=== PATIENT | male | born 1955 | race Caucasian/White ===

== ENCOUNTER 2019-11-11 11:06 | Outpatient (REF) | payer MEDICARE, MEDICAID, SELFPAY ==
[2019-11-11 11:41] LABS: Abs Immature Grans 0.04 k/cumm (0.0-0.09); Absolute Basophil Count 0.05 k/cumm (0.0-0.2); Absolute Eosinophil Count 0.22 k/cumm (0.0-0.7); Absolute Lymphocyte Count 2.49 k/cumm (1.2-3.4); Absolute Monocyte Count 0.88 k/cumm (0.11-0.7); Absolute Neutrophil Count 3.94 k/cumm (1.2-6.7); Basophils % 0.7; Eosinophils % 2.9; HCT 46.8 % (40.0-50.0); HGB 16.1 g/dL (13.5-17.5); Immature Grans % 0.5 %; Lymphocytes % 32.7; Mean Corp. HGB Concentration 34.4 g/dL (32.0-36.0); Mean Corpuscular Hemoglobin 30.6 pg (27.0-33.0); Mean Platelet Volume 9.9 fL (8.0-11.0); Monocytes % 11.5; Neutrophils % 51.7; Platelet Count 346 x1000/uL (130-400); RBC 5.26 m/cumm (4.50-6.00); RBC Distribution Width 13.8 % (11.8-14.1); White Blood Cell Count 7.62 k/cumm (4.4-10.8)
[2019-11-11 12:19] LABS: Iron 74 ug/dL (65-175); Total Iron Binding Capacity 361 ug/dL (250-450); Transferrin Sat 20 % (20-55)
[2019-11-11 12:43] LABS: Hemoglobin A1C 5.7 % (3.8-5.6)
[2019-11-11 12:44] LABS: ALT 30 U/L (16-63); AST 27 U/L (15-37); Albumin 3.6 g/dL (3.4-5.0); Alkaline Phosphatase 105 U/L (46-116); Anion Gap 8.7 mmol/L (3-11); BUN 9 mg/dL (7-18); Bilirubin, Total 0.5 mg/dL (0.2-1.0); CO2 28.3 mmol/L (21.0-32.0); CREATININE 0.76 mg/dL (0.70-1.30); Calcium 8.9 mg/dL (8.5-10.1); Chloride 103 mmol/L (98-107); Glucose 86 mg/dL (74-106); Potassium 4.2 mmol/L (3.5-5.1); Sodium 140 mmol/L (136-145); TSH (W/Ref FT4) 1.26 uIU/mL (0.36-3.74); Total Protein 7.4 g/dL (6.4-8.2); Vitamin B12 1249 pg/mL (193-986)
[2019-11-11 12:47] LABS: Folate > 20.0 ng/mL (8.6-20.0)
== END 2019-11-11 11:26 ==
LOC: LBN 11:06
PROVIDERS: PCP Family Medicine; Visit Provider Family Medicine
DX: R53.83 Other fatigue (principal); I25.10 Atherosclerotic heart disease of native coronary artery without angina pectoris; R25.2 Cramp and spasm; I10 Essential (primary) hypertension; R79.89 Other specified abnormal findings of blood chemistry; R73.09 Other abnormal glucose
CPT/HCPCS: 80053; 82607; 82746; 83036; 83540; 83550; 83735; 84443; 85025

== ENCOUNTER 2022-01-12 14:34 | Emergency (ER) | payer MEDICARE, MEDICAID, SELFPAY ==
[2022-01-12] VITALS (25 sets, daily range): BP systolic 105–133; BP diastolic 62–84; PULSE 85–109; RESP 10–21; TEMP 36.5; O2SAT 91–98
--- NOTE | 2022-01-12 14:30 | RT.EKG_ITS ---
APPROVED REPORT Exam: Resting ECG Reason for Exam: CHEST PAIN Patient Location: E HR:99 bpm ECG Measurements Heart Rate 99 AXIS UT 120 P 17 QRSd 79 QRS 45 QT 335 T -52 QTc 431 Conclusion Sinus rhythm...normal P axis, V-rate 60- 99
--- NOTE | 2022-01-12 14:45 | DI.RAD_ITS ---
Exam(s) XR PORTABLE CHEST AP EXAM: XR PORTABLE CHEST AP CLINICAL HISTORY: cough/pain. TECHNIQUE: 2D digital imaging was performed. COMPARISON: CR CHEST 2 VIEWS PA,LAT from 11/30/2016 FINDINGS: Single AP portable view. Heart size is upper normal. The mediastinum is not widened. Lungs are clear. No infiltrates nor obvious pleural effusions. IMPRESSION: No acute pulmonary findings on this single AP portable view of the chest. DATA REPOSITORY: RADIATION DOSE DELIVERED: All CT scans at this facility use at least one of these dose optimization techniques: automated exposure control; mA and/or kV adjustment per patient size (includes targeted e xams where dose is matched to clinical indication); or iterative reconstruction.
[2022-01-12] MEDS: Aspirin 81 MG CHEW 324 MG CH (15:06)
--- NOTE | 2022-01-12 15:11 | ED.GENADUL_ITS ---
Discharge Plan Disposition Patient Disposition: HOME Condition: Stable Discharge Details Clinical Impression: Chest pain, COPD exacerbation Primary Care Provider: Marylu Lyman ED Provider: Nancy Berger Home Meds and New Rx's Prescriptions: Continued acetaminophen 325 mg tablet See Rx Instructions PO Q 6HR PRN (Reason: fever or pain) Qty: 100 4RF Rx Instructions: 1-2 tabs PO Q 6HR PRN; multivitamin [Multiple Vitamins] 1 TAB tablet 1 tab PO DAILY Qty: 30 0RF Discharge Instructions Instructions: Chest Pain (ED), COPD (Chronic Obstructive Pulmonary Disease) (ED) Additional Instructions: At this time there is no evidence for pneumonia, no blood clot, No evidence for heart attack, COVID is negative. I do suspect a COPD exacerbation or a viral URI. . Please follow-up with your primary care provider in 3 to 5 days return to the ER for any worsening chest pain or shortness of breath. Referrals: Marylu Lyman MD, [place] [Primary Care Provider] - 5 days Medical Decision Making <DILIP Sandy - Last Filed: 01/12/22 15:50> This is a 66-year-old gentleman, past medical history that includes Warnicke encephalopathy, previous alcohol dependence, COPD, presents to the ER reporting 3-week history of cough, with hemoptysis at times, associate with occasional chest aching when coughing and shortness of breath. Clinically he appears well, nontoxic. Extremely low suspicion for ACS given his overall presentation. Will give a single dose aspirin, initiate cardiac work-up, and obtain a D-dimer. Will await D-dimer results to decide whether to proceed with CTA and or VQ scan if at all possible given the IV contrast shortage Medical Records Medical records reviewed: Yes I reviewed the patient's medical records. Lab Data Lab results reviewed: Yes I reviewed the patient's lab results. Labs: Laboratory Tests Range/Units 01/12/22 01/12/22 01/12/22 14:58 14:58 14:58 WBC (4.4-10.8) 10^3/uL 8.40 RBC (4.36-5.78) 10^6/uL 5.17 Hgb (13.5-17.5) g/dL 15.5 Hct (40.0-50.0) % 46.7 MCV (80-95) fL 90 MCH (27.0-33.0) pg 30.0 MCHC (32.0-36.0) % 33.2 RDW (11.8-14.1) % 13.1 Plt Count (130-400) 10^3/uL 340 MPV (8.0-11.0) fL 9.4 Immature Gran % 0.5 Neutrophils % 73.8 Lymphocytes % 14.0 Monocytes % 10.8 Eosinophils % 0.5 Basophils % 0.4 Nucleated RBC % (0.0-0.3) % 0.0 Absolute Neutrophils (1.2-6.7) 10^3/uL 6.20 Absolute Lymphocytes (1.2-3.4) 10^3/uL 1.18 L Absolute Monocytes (0.1-0.8) 10^3/uL 0.91 H Absolute Eosinophils (0.0-0.7) 10^3/uL 0.04 Absolute Basophils (0.0-0.2) 10^3/uL 0.03 PT (9.3-11.0) sec 10.0 INR (0.9-1.1) 1.0 APTT (21.0-27.5) sec 25.4 Sodium (136-145) mmol/L 136 Potassium (3.5-5.1) mmol/L 3.3 L Chloride (98-107) mmol/L 100 Carbon Dioxide (21.0-32.0) mmol/L 23.4 Anion Gap (3-11) mmol/L 12.6 H BUN (7-18) mg/dL 23 H Creatinine (0.70-1.30) mg/dL 1.0 Estimated GFR/1.73 m2 (mL/min/1.73m2) >= 60.00 Glucose (74-106) mg/dL 115 H Calcium (8.5-10.1) mg/dL 8.9 Magnesium (1.8-2.4) mg/dL 2.0 Total Bilirubin (0.2-1.0) mg/dL 0.4 AST (15-37) U/L 21 ALT (16-63) U/L 22 Alkaline Phosphatase (46-116) U/L 98 Troponin I (<or=60) ng/L < 50 NT-Pro-B Natriuret Pep (<300) pg/mL 157 Total Protein (6.4-8.2) g/dL 7.6 Albumin (3.4-5.0) g/dL 3.3 L COVID-19 Source Range/Units 01/12/22 15:08 WBC (4.4-10.8) 10^3/uL RBC (4.36-5.78) 10^6/uL Hgb (13.5-17.5) g/dL Hct (40.0-50.0) % MCV (80-95) fL MCH (27.0-33.0) pg MCHC (32.0-36.0) % RDW (11.8-14.1) % Plt Count (130-400) 10^3/uL MPV (8.0-11.0) fL Immature Gran % Neutrophils % Lymphocytes % Monocytes % Eosinophils % Basophils % Nucleated RBC % (0.0-0.3) % Absolute Neutrophils (1.2-6.7) 10^3/uL Absolute Lymphocytes (1.2-3.4) 10^3/uL Absolute Monocytes (0.1-0.8) 10^3/uL Absolute Eosinophils (0.0-0.7) 10^3/uL Absolute Basophils (0.0-0.2) 10^3/uL PT (9.3-11.0) sec INR (0.9-1.1) APTT (21.0-27.5) sec Sodium (136-145) mmol/L Potassium (3.5-5.1) mmol/L Chloride (98-107) mmol/L Carbon Dioxide (21.0-32.0) mmol/L Anion Gap (3-11) mmol/L BUN (7-18) mg/dL Creatinine (0.70-1.30) mg/dL Estimated GFR/1.73 m2 (mL/min/1.73m2) Glucose (74-106) mg/dL Calcium (8.5-10.1) mg/dL Magnesium (1.8-2.4) mg/dL Total Bilirubin (0.2-1.0) mg/dL AST (15-37) U/L ALT (16-63) U/L Alkaline Phosphatase (46-116) U/L Troponin I (<or=60) ng/L NT-Pro-B Natriuret Pep (<300) pg/mL Total Protein (6.4-8.2) g/dL Albumin (3.4-5.0) g/dL COVID-19 Source Nasal/Nares ECG Data Attestation: I personally reviewed and interpreted this ECG (s) as follows: Interpretation: Please see official report by Dr. Oconnor, sinus rhythm, ventricular rate of 99, no STEMI <Nancy Berger - Last Filed: 01/12/22 19:45> This is a 66-year-old gentleman, past medical history that includes Warnicke encephalopathy, previous alcohol dependence, COPD, presents to the ER reporting 3-week history of cough, with hemoptysis at times, associate with occasional chest aching when coughing and shortness of breath. Clinically he appears well, nontoxic. Extremely low suspicion for ACS given his overall presentation. Will give a single dose aspirin, initiate cardiac work-up, and obtain a D-dimer. Will await D-dimer results to decide whether to proceed with CTA and or VQ scan if at all possible given the IV contrast shortage 1603: [place]: Care assumed from provider (DILIP Nayak Please see their initial HPI, PE, and documentation. Discussed patient details and case and pending workup and disposition. Patient is hemodynamically stable, and alert and oriented. At the time of signout we are awaiting D-dimer which has resulted with a level of 1660 due to hemoptysis and chest pain with shortness of breath will contact transportation associate for possible CTA with contrast rule out PE. Initial troponin less than 50, COVID is pending at this time. GFR greater than 60. Spoke with Dr. Iqbal who is on for radiologist, will go ahead with CTA R/O PE. CT negative for PE, Discussed results with patient and family. They verbalized understanding. Patient reports that he feels much improved. Serial troponin within normal limits. Plan to discharge patient home in the care of of his daughter. Patient remained hemodynamically stable, alert and at baseline for the remainder of his stay. This text was generated using [employer] system, please disregard any oddities of phrase or misspellings. Medical Records Medical records reviewed: Yes I reviewed the patient's medical records. Imaging Data Radiologic Study: Imaging: CT Scan Radiologist's impression: FINDINGS: CHEST: PULMONARY ARTERIES: There are no intraluminal filling defects to suggest acute pulmonary emboli. LUNGS: There are mild increased interstitial peripheral markings as well as subpleural mild increased markings over the lower lobes bilaterally. No evidence of pulmonary infarction. Small area of infiltrate in the posterior aspect of the right lower lobe. No prominent infiltrates nor pleural effusions. No ominous pulmonary nodules. No significant focal findings in the trachea and mainstem bronchi.. There are no pleural effusions. MEDIASTINUM: There is no hilar nor mediastinal adenopathy. Visualized thyroid unremarkable. CARDIAC: Heart size is upper normal. There is no pericardial effusion.Caliber of the thoracic aorta is within normal limits. No evidence of aortic dissection. There is no significant shift of the interventricular septum. PARTIALLY VISUALIZED UPPERMOST ABDOMEN: No obvious findings OSSEOUS: No significant osseous lesions.. IMPRESSION: 1. No evidence of acute pulmonary emboli. No evidence of pulmonary infarction.No pleural effusions. 2. Mild increased subpleural markings but without true air bronchograms. No pleural effusions. No intrathoracic adenopathy HPI <DILIP Sandy - Last Filed: 01/12/22 15:50> General Mode of arrival: EMS . Date/Time Provider Initiated Documentation: 01/12/22 14:53 . Limitations to Documentation: no limitations . Information obtained by: patient and EMS . History of Present Illness 66 year old M presents to the emergency department with the chief complaint of cough/sob/cp, described as mild, with intensity rated at 3. Quality is described as aching, and is localized to the chest. Patient reports no radiation. Patient started experiencing this week(s) (3) No relieving factors improve symptom(s), No exacerbating factors reported . Patient notes cough (Hemoptysis). Patient did receive the following treatments prior to arrival, none Related Data Home Medications Medication Instructions Recorded Confirmed multivitamin (Multiple Vitamins 1 tab PO DAILY #30 tabs 12/05/16 07/05/21 tablet) acetaminophen 325 mg tablet See Rx Instructions PO Q 6HR PRN 11/02/21 01/12/22 fever or pain #100 tab-caps Previous Rx's Medication Instructions Recorded multivitamin (Multiple Vitamins 1 tab PO DAILY #30 tabs 12/05/16 tablet) acetaminophen 325 mg tablet See Rx Instructions PO Q 6HR PRN 11/02/21 fever or pain #100 tab-caps Allergies Allergy/AdvReac Type Severity Reaction Status Date / Time No Known Allergies Allergy Unverified 01/12/22 14:44 General Stated Complaint: Chest Pain NAVNEET: 3 Review of Systems <DILIP Sandy - Last Filed: 01/12/22 15:50> Constitutional Constitutional: Denies fever(s), Denies headache(s) and Denies weakness ENT Ears, Nose, Mouth, and Throat: Denies headache(s) and Denies neck pain Cardiovascular Cardiovascular: Reports chest pain (Primarily with cough) and Reports dyspnea Respiratory Respiratory: Reports cough and Reports dyspnea Gastrointestinal Gastrointestinal: Denies abdominal pain, Denies nausea and Denies vomiting Musculoskeletal Musculoskeletal: Denies back pain and Denies neck pain Integumentary/Breasts Skin/Breast: Denies rash Neurologic Neurologic: Denies headache(s) and Denies weakness Hematologic/Lymphatic Hematologic/Lymphatic: Denies easy bleeding and Denies easy bruising PFSH <DILIP Sandy - Last Filed: 01/12/22 15:50> All Active Problems (Updated 01/12/22 @ 18:52 by Nancy Berger) Chest pain (Acute) COPD exacerbation (Acute) Wernicke encephalopathy (Acute) Alcohol dependence with withdrawal delirium (Acute) Folate deficiency (Acute) COPD (chronic obstructive pulmonary disease) (Acute) Weight loss (Acute) Hypokalemia (Acute) Hypomagnesemia (Acute) SVT (supraventricular tachycardia) (Acute) Second degree atrioventricular block (Acute) Social History Smoking/Tobacco Use Status: Current every day Smoking risk assessment performed?: Yes Alcohol Intake: former Drug use: Never Substance use type: does not use Exam <DILIP Sandy - Last Filed: 01/12/22 15:50> Const General: cooperative, healthy appearing, comfortable and no acute distress Orientation: alert and awake [facility] Head: normal to inspection, normocephalic and atraumatic Eyes General: appearance normal, both eyes and all related structures Conjunctivae: conjunctivae normal Neck Neck: normal visual inspection, full ROM, trachea midline, supple and nontender Resp Effort & Inspection: normal respiratory effort, able to speak in complete sentences and cough Quality of cough: dry Auscultation: clear to auscultation bilaterally and diminished lung sounds bilaterally in the lower lung shetty Cardio Rate: tachycardic (108) Rhythm: regular rhythm GI Palpation: soft and nontender Back/Spine/Pelvis Back: No back tenderness Skin General skin exam: no rashes or lesions noted Neuro General: patient alert, patient awake, moves all extremities and no focal motor deficits Cognition: normal cognition Speech: speech normal Sensory Exam: no sensory deficits noted Extrem General: normal to inspection, full ROM, capillary refill normal, no pedal edema and no calf tenderness Psych Appearance: grossly normal Mental Status: mental status grossly normal Course <DILIP Sandy - Last Filed: 01/12/22 15:50> Vital Signs Vital signs: Vital Signs Temperature 36.5 C 01/12/22 14:37 Pulse 109 H 01/12/22 14:37 Respiratory Rate 18 01/12/22 14:37 Blood Pressure 110/62 01/12/22 14:37 Pulse Oximetry 98 01/12/22 14:37 Temperature 36.5 C 01/12/22 14:37 Temperature Source Temporal Artery Scan 01/12/22 14:37 Pulse 109 H 01/12/22 14:37 Respiratory Rate 18 01/12/22 14:46 Respiratory Effort Non-Labored 01/12/22 14:46 Respiratory Depth Normal 01/12/22 14:46 Respiratory Pattern Normal 01/12/22 14:46 Blood Pressure 110/62 01/12/22 14:37 Blood Pressure Position Sitting 01/12/22 14:37 Pulse Oximetry 98 01/12/22 14:37 Oxygen Delivery Method Room Air 01/12/22 14:37 Oxygen Flow Rate 0 01/12/22 14:37 Sign Out <DILIP Sandy - Last Filed: 01/12/22 15:50> Sign Out Data: Sign Out Comment: 66-year-old gentleman past sickle history of COPD, current smoker, presents for cough, hemoptysis, shortness of breath and chest pain. Initiated a cardiac work-up and awaiting D-dimer Last updated by Chalino Littlejohn PA at 01/12/22 15:50
[2022-01-12 15:13] LABS: Source Nasal/Nares
[2022-01-12 15:18] LABS: Abs Immature Grans 0.04 10^3/uL (0.0-0.06); Absolute Basophil Count 0.03 10^3/uL (0.0-0.2); Absolute Eosinophil Count 0.04 10^3/uL (0.0-0.7); Absolute Lymphocyte Count 1.18 10^3/uL (1.2-3.4); Absolute Monocyte Count 0.91 10^3/uL (0.1-0.8); Basophils % 0.4; Eosinophils % 0.5; HCT 46.7 % (40.0-50.0); HGB 15.5 g/dL (13.5-17.5); Immature Grans % 0.5; MCHC 33.2 % (32.0-36.0); MCV 90 fL (80-95); MPV 9.4 fL (8.0-11.0); Monocytes % 10.8; Neutrophils % 73.8; Platelet Count 340 10^3/uL (130-400); RBC 5.17 10^6/uL (4.36-5.78); RDW 13.1 % (11.8-14.1); RDW-SD 43.4 fL
[2022-01-12 15:38] LABS: ALT 22 U/L (16-63); AST 21 U/L (15-37); Albumin 3.3 g/dL (3.4-5.0); Alkaline Phosphatase 98 U/L (46-116); Anion Gap 12.6 mmol/L (3-11); BUN 23 mg/dL (7-18); Bilirubin, Total 0.4 mg/dL (0.2-1.0); CO2 23.4 mmol/L (21.0-32.0); Calcium 8.9 mg/dL (8.5-10.1); Chloride 100 mmol/L (98-107); Glucose 115 mg/dL (74-106); NT-proBNP 157 pg/mL (<300); Potassium 3.3 mmol/L (3.5-5.1); Sodium 136 mmol/L (136-145); Total Protein 7.6 g/dL (6.4-8.2); Troponin I < 50 ng/L (<or=60)
[2022-01-12 15:39] LABS: PTT Activated 25.4 sec (21.0-27.5)
[2022-01-12 15:49] LABS: D-Dimer 1660 ng/mlFEU (<500)
--- NOTE | 2022-01-12 16:00 | DI.CT_ITS ---
Exam(s) CT CHEST PE CTA EXAM: CT CHEST PE CTA CLINICAL HISTORY: Elevated Dimer, CP, SOB, Hemoptysis. TECHNIQUE: Imaging Protocol: CT angiography of the chest was performed using pulmonary embolus lizz col. Multi planar reconstructions were performed. CONTRAST MATERIAL: Intravenous: Omnipaque 350 Contrast volume: 100 cc COMPARISON: CT CHEST ABD PELVIS WITH CONTRAST from 08/01/2015 CR XR PORTABLE CHEST AP from 01/12/2022 FINDINGS: CHEST: PULMONARY ARTERIES: There are no intraluminal filling defects to suggest acute pulmonary emboli. LUNGS: There are mild increased interstitial peripheral markings as well as subpleural mild increased markings over the lower lobes bilaterally. No evidence of pulmonary infarction. Small area of infi ltrate in the posterior aspect of the right lower lobe. No prominent infiltrates nor pleural effusio ns. No ominous pulmonary nodules. No significant focal findings in the trachea and mainstem bronchi .. There are no pleural effusions. MEDIASTINUM: There is no hilar nor mediastinal adenopathy. Visualized thyroid unremarkable. CARDIAC: Heart size is upper normal. There is no pericardial effusion.Caliber of the thoracic aorta is within normal limits. No evidence of aortic dissection. There is no significant shift of the inte rventricular septum. PARTIALLY VISUALIZED UPPERMOST ABDOMEN: No obvious findings OSSEOUS: No significant osseous lesions.. IMPRESSION: 1. No evidence of acute pulmonary emboli. No evidence of pulmonary infarction.No pleural effusions. 2. Mild increased subpleural markings but without true air bronchograms. No pleural effusions. No i ntrathoracic adenopathy. Report called by myself to the ER provider. RADIATION DOSE DELIVERED: 298.7mGy.cm Total DLP DATA REPOSITORY: All CT scans at this facility are submitted to the National Radiology Data Registry (NRDR) Dose Index Registry (DIR) with the [employer] ([employer]). RADIATION OPTIMIZATION: All CT scans at this facility use at least one of these dose optimization te chniques: automated exposure control; mA and/or kV adjustment per patient size (includes targeted exa ms where dose is matched to clinical indication); or iterative reconstruction.
[2022-01-12 16:10] LABS: COVID-19 PCR Negative (Negative)
[2022-01-12 18:33] LABS: Troponin I < 50 ng/L (<or=60)
== END 2022-01-12 19:06 | disposition home or self-care (01) ==
PROVIDERS: Physician Assistant; Emergency Provider Registered Nurse Emergency; PCP Family Medicine
DX: J44.1 Chronic obstructive pulmonary disease with (acute) exacerbation (principal); R07.9 Chest pain, unspecified; R06.02 Shortness of breath; R05.9 Cough, unspecified; Z20.822 Contact with and (suspected) exposure to COVID-19
CPT/HCPCS: 36415; 71275; 80053; 87635; 93005; 99284; 99285; 71045; 83735; 83880; 84484; 85025; 85379; 85610; 85730; 93010

== ENCOUNTER 2022-01-12 18:36 | Outpatient (REF) | payer MEDICARE, MEDICAID, SELFPAY ==
[2022-01-12 14:24] LABS: Abs Immature Grans 0.02 10^3/uL (0.0-0.06); Absolute Basophil Count 0.03 10^3/uL (0.0-0.2); Absolute Eosinophil Count 0.05 10^3/uL (0.0-0.7); Absolute Lymphocyte Count 1.56 10^3/uL (1.2-3.4); Absolute Monocyte Count 0.84 10^3/uL (0.1-0.8); Absolute Neutrophil Count 6.17 10^3/uL (1.2-6.7); Basophils % 0.3; Eosinophils % 0.6; HCT 48.5 % (40.0-50.0); HGB 16.3 g/dL (13.5-17.5); Immature Grans % 0.2; MCH 30.4 pg (27.0-33.0); MCHC 33.6 % (32.0-36.0); MCV 90 fL (80-95); MPV 9.7 fL (8.0-11.0); Monocytes % 9.7; Neutrophils % 71.2; Platelet Count 340 10^3/uL (130-400); RBC 5.37 10^6/uL (4.36-5.78); RDW 13.1 % (11.8-14.1); RDW-SD 43.3 fL; WBC 8.67 10^3/uL (4.4-10.8)
[2022-01-12 14:27] LABS: ESR 41 mm/hr (0-20)
[2022-01-12 14:41] LABS: ALT 21 U/L (16-63); AST 18 U/L (15-37); Albumin 3.6 g/dL (3.4-5.0); Alkaline Phosphatase 109 U/L (46-116); Anion Gap 11.6 mmol/L (3-11); BUN 23 mg/dL (7-18); Bilirubin, Total 0.5 mg/dL (0.2-1.0); CO2 27.4 mmol/L (21.0-32.0); Calcium 9.4 mg/dL (8.5-10.1); Chloride 101 mmol/L (98-107); Glucose 103 mg/dL (74-106); Potassium 3.9 mmol/L (3.5-5.1); Sodium 140 mmol/L (136-145); Total Protein 7.4 g/dL (6.4-8.2)
== END 2022-01-12 18:37 | disposition home or self-care (01) ==
LOC: LBN 18:36
PROVIDERS: PCP Family Medicine; Visit Provider Family Medicine
DX: R53.83 Other fatigue (principal); R68.89 Other general symptoms and signs
CPT/HCPCS: 80053; 85652; 85025

== ENCOUNTER 2022-08-31 00:29 | Outpatient (CLI) | payer MEDICARE, MEDICAID, SELFPAY ==
--- NOTE | 2022-08-31 08:00 | DI.RAD_ITS ---
Exam(s) XR SHOULDER RT COMPLETE 2+V EXAM: XR SHOULDER RT COMPLETE 2+V CLINICAL HISTORY: r shoulder pain,M25.511. TECHNIQUE: 2D digital imaging was performed. Five views. COMPARISON: No exams were available for comparison FINDINGS: BONES: No acute fracture is present. No bony destructive lesion is seen. JOINTS: No dislocation present. Mild degenerative changes at the glenohumeral joint. SOFT TISSUE: Normal. IMPRESSION: Mild degenerative changes of the glenohumeral joint. DATA REPOSITORY: RADIATION DOSE DELIVERED:
== END 2022-08-31 00:49 ==
LOC: DI 00:29
PROVIDERS: PCP Family Medicine; Visit Provider Family Medicine
DX: M25.511 Pain in right shoulder (principal); M19.011 Primary osteoarthritis, right shoulder
CPT/HCPCS: 73030

== ENCOUNTER 2023-05-29 22:39 | Emergency (ER) | payer MEDICARE, MEDICAID, SELFPAY ==
[2023-05-29] VITALS (18 sets, daily range): BP systolic 93–113; BP diastolic 58–72; PULSE 75–94; RESP 14–22; TEMP 36.5; O2SAT 97–99
--- NOTE | 2023-05-29 22:30 | RT.EKG_ITS ---
APPROVED REPORT Exam: Resting ECG Reason for Exam: short of breath Patient Location: E HR:80 bpm ECG Measurements Heart Rate 80 AXIS MT 99 P 79 QRSd 89 QRS -12 QT 393 T -34 QTc 454 Conclusion Sinus rhythm...normal P axis, V-rate 60- 99 Inferior infarct, age indeterminate...Q>35mS, T neg, II III aVF Narrow complex normal sinus rhythm at a rate of 80. Left axis deviation no signs of LVH based on vol tage criteria and aVL. Poor R wave progression. Short MT interval shortened compared to prior. No obvious delta wave. No acute injury pattern.
--- NOTE | 2023-05-29 22:45 | DI.RAD_ITS ---
Exam(s) XR PORTABLE CHEST AP EXAM: XR PORTABLE CHEST AP CLINICAL HISTORY: Shortness of breath cough. TECHNIQUE: 2D digital imaging was performed. COMPARISON: CR XR PORTABLE CHEST AP from 01/12/2022 FINDINGS: Single AP portable view. Heart size is upper normal. The mediastinum is not widened. Chronic increased lung markings. However no confluent infiltrates nor pleural effusions. No pulmona ry edema. IMPRESSION: Chronic lung disease but no acute infiltrates. No pleural effusions. DATA REPOSITORY: RADIATION DOSE DELIVERED:
--- NOTE | 2023-05-29 22:52 | W.ED.GENAD ---
Discharge Plan Discharge Details Chief Complaint: GenMedical Primary Care Provider: Marylu Lyman ED Provider: Bruce Wheeler Home Meds and New Rx's Prescriptions: No Action acetaminophen 325 mg tablet See Rx Instructions PO Q 6HR PRN (Reason: fever or pain) Qty: 100 4RF Rx Instructions: 1-2 tabs PO Q 6HR PRN; albuterol sulfate 90 mcg/actuation HFA aerosol inhaler 2 puff inhalation Q4H PRN lidocaine [Salonpas (lidocaine)] 4 % adhesive patch,medicated 1 patch topical DAILY PRN Rx Instructions: apply to right shoulder daily as needed guaifenesin [Tussin] 100 mg/5 mL liquid 200 mg PO Q4H PRN (Reason: cough) Qty: 473 2RF multivitamin [Multiple Vitamins] 1 TAB tablet 1 tab PO DAILY Qty: 30 0RF HPI General Date/Time Provider Initiated Documentation: 05/29/23 22:49. HPI Narrative: HPI This is a 67-year-old male with a history of COPD and Warnicke's's coming from the [facility] and not feeling well. Patient reportedly had some increased shortness of breath today. He is a daily tobacco user. He says that he has had mild increased cough over the past several days. He notes that his sputum has become slightly more productive. Paramedics noted that his CODE STATUS is DNI DNR. Normal fingerstick blood glucose. His outpatient medicines are acetaminophen albuterol Lidoderm patch and multivitamins in addition to guaifenesin. He denies routine ethanol and reports that he has not had a drink of alcohol in greater than 1 year. He did not take any falls. He denies nausea vomiting abdominal pain fevers chills and headache. Exam General: Chronically ill-appearing in no acute distress speaking in complete sentences. Wearing glasses that are taped on the right side Head: Normocephalic, atraumatic. Eye: Extraocular eye movements intact. No conjunctival injection. No scleral icterus. Ear, nose, mouth, throat: Grossly normal inspection. Normal voice, handling secretions normally. Uvula midline. No significant posterior oropharynx erythema. Good range of motion in the neck. Neck: Trachea midline. Cardiovascular: Well-perfused distal extremities. Regular rate and rhythm. Respiratory: Nonlabored respiration. no respiratory distress. No abnormal lung sounds. Very mildly prolonged no wheezes. No end expiratory and not volume overloaded so doubt CHF. Wheeze. Gastrointestinal: Nondistended abdomen. Soft nontender Musculoskeletal: No no lower extremity pitting edema. Moving all 4 extremities spontaneously. Skin: Normal for age and race, grossly normal temperature and turgor. No acute rash. Neurologic: Alert to person place but not time stating that it is 2021. No apparent acute deficits. Cranial nerves II through XII intact grossly. 5 out of 5 bilateral upper lower extremity strength. Psychiatric: Mood and manner are appropriate. Grooming and personal hygiene are appropriate. MDM This is a chronically ill-appearing normothermic and not tachycardic 67-year-old male with COPD and shortness of breath with cough concerning for viral etiology versus early COPD exacerbation. Patient does have mildly prolonged expiratory phase and given his increased sputum purulence it is certainly possible that he could have COPD exacerbation. Patient is generally independent and has not taken any falls so I am not concern for any intracranial hemorrhage. He is alert to person and place but off in terms of time. He has no other focal neurological deficits so I am not suspicious for CVA and I do not feel that patient requires an MRI nor is he a candidate for tPA. His ECG does show a prolonged AL interval in the middle of his rhythm strip. We will repeat his ECG to ensure that he does not have a high degree heart block. Patient does endorse a sore throat but his uvula is midline so not suspicious for LINER REROLL TENDER. Good range of motion in neck so I am not concerned for retropharyngeal abscess. Given no fevers I am not suspicious for meningitis. In the absence of fevers will defer strep swab at this point time. Will obtain a venous blood gas to assess for possible hypercarbia. No history of CHF and not volume overloaded so doubt new onset CHF. I considered PE however the patient is not tachycardic not hypoxic so I did not send a D-dimer. Patient is not septic appearing and not meeting SIRS criteria so I did not draw a lactate treat empirically with antibiotics nor order blood cultures. We will swab for influenza COVID and RSV. Will complete portable chest x-ray. Given shortness of breath vague history and age will obtain 2 sets of troponins to ensure patient does not have ACS. Chronic conditions affecting the care of the patient: Warnicke's encephalopathy COPD History obtained from an outside historian: Paramedics External record review: Remote trauma encounter [facility] EMR 8 years ago [Diagnostic interpretations performed by me:] [Per my independent interpretation chest x-ray shows:] On my preliminary interpretation patient does have mildly increased interstitial markings on his chest x-ray. No effusions. No signs of trauma. [Per my independent interpretation EKG shows:] Narrow complex normal sinus rhythm at a rate of 80. Left axis deviation no signs of LVH based on voltage criteria and aVL. Poor R wave progression. Short AL interval shortened compared to prior. No obvious delta wave. No acute injury pattern. Repeat ECG showing narrow complex normal sinus rhythm at a rate of 77. Left axis deviation no signs of LVH based on voltage criteria. No blocks. No acute injury pattern. AL has increased compared to prior. Medications: Acetaminophen Social determinants of health affecting disposition: N/A Management discussed with: Oncoming ED physician Dr. Antunez Treatment/interventions considered: D-dimer but deferred given no tachycardia no hypoxia Response to therapies provided: We will treat sore throat with acetaminophen Related Data Home Medications Medication Instructions Recorded Confirmed multivitamin (Multiple Vitamins 1 tab PO DAILY #30 tabs 12/05/16 05/29/23 tablet) acetaminophen 325 mg tablet See Rx Instructions PO Q 6HR PRN 11/02/21 05/29/23 fever or pain #100 tab-caps albuterol sulfate 90 mcg/actuation 2 puff inhalation Q4H PRN 03/04/23 05/29/23 aerosol inhaler lidocaine 4 % topical patch 1 patch topical DAILY PRN 03/04/23 05/29/23 (Salonpas (lidocaine)) guaifenesin 100 mg/5 mL oral 200 mg (10 mL) PO Q4H PRN cough 05/28/23 05/29/23 liquid (Tussin) #473 mL Previous Rx's Medication Instructions Recorded multivitamin (Multiple Vitamins 1 tab PO DAILY #30 tabs 12/05/16 tablet) acetaminophen 325 mg tablet See Rx Instructions PO Q 6HR PRN 11/02/21 fever or pain #100 tab-caps guaifenesin 100 mg/5 mL oral 200 mg (10 mL) PO Q4H PRN cough 05/28/23 liquid (Tussin) #473 mL Allergies Allergy/AdvReac Type Severity Reaction Status Date / Time No Known Allergies Allergy Unverified 09/27/23 22:44 General Stated Complaint: GenMedical NAVNEET: 3 PFSH All Active Problems (Updated 09/14/22 @ 08:00 by Marylu Lyman MD, [place]) Wernicke encephalopathy (Acute 07/15/17) Right shoulder pain (Acute) Wernicke encephalopathy (Acute) Folate deficiency (Acute) COPD (chronic obstructive pulmonary disease) (Acute) Second degree atrioventricular block (Acute) Medical History (Updated 09/14/22 @ 08:00 by Marylu Lyman MD, [place]) Alcohol dependence with withdrawal delirium Hypokalemia Hypomagnesemia SVT (supraventricular tachycardia) Weight loss Social History Smoking/Tobacco Use Status: Current every day Smoking risk assessment performed?: Yes Alcohol Intake: former Drug use: Never Substance use type: does not use Course Vital Signs Vital signs: Vital Signs Temperature 36.5 C 05/29/23 22:41 Pulse 81 05/29/23 22:41 Respiratory Rate 16 05/29/23 22:41 Pulse Oximetry 99 05/29/23 22:41 Temperature 36.5 C 05/29/23 22:41 Temperature Source Temporal Artery Scan 05/29/23 22:41 Pulse 81 05/29/23 22:41 Respiratory Rate 16 05/29/23 22:41 Respiratory Effort Normal 05/29/23 22:41 Pulse Oximetry 99 05/29/23 22:41 Oxygen Delivery Method Room Air 05/29/23 22:41 Oxygen Flow Rate 0 05/29/23 22:41 Pain Level 0 05/29/23 22:41
--- NOTE | 2023-05-29 23:00 | RT.EKG_ITS ---
APPROVED REPORT Exam: Resting ECG Reason for Exam: Abnormal ECG Patient Location: E HR:77 bpm ECG Measurements Heart Rate 77 AXIS MS 129 P 12 QRSd 90 QRS 0 QT 401 T 3 QTc 455 Conclusion Sinus rhythm...normal P axis, V-rate 60- 99 Consider left ventricular hypertrophy...(R aVL+S V3) >2.80mV Repeat ECG showing narrow complex normal sinus rhythm at a rate of 77. Left axis deviation no signs of LVH based on voltage criteria. No blocks. No acute injury pattern. MS has increased compared to prior.
[2023-05-29] MEDS: Acetaminophen 500 MG TAB 650 MG PO (23:02)
[2023-05-29 23:04] LABS: BE (Venous) -1 mmol/L (-2-3); HCO3 (Venous) 23 mmol/L (23-28); O2 Sat (Venous) 70 %; TCO2 (Venous) 21 mmol/L (24-29); pCO2 (Venous) 35 mmHg (41-51); pH (Venous) 7.43 (7.31-7.41); pO2 (Venous) 37 mmHg
[2023-05-29 23:05] LABS: Abs Immature Grans 0.04 10^3/uL (0.0-0.06); Absolute Basophil Count 0.06 10^3/uL (0.0-0.2); Absolute Eosinophil Count 0.27 10^3/uL (0.0-0.7); Absolute Lymphocyte Count 2.81 10^3/uL (1.2-3.4); Absolute Monocyte Count 0.74 10^3/uL (0.1-0.8); Absolute Neutrophil Count 4.18 10^3/uL (1.2-6.7); Basophils % 0.7; Eosinophils % 3.3; HCT 40.9 % (40.0-50.0); Immature Grans % 0.5; Lymphocytes % 34.7; MCHC 34.2 % (32.0-36.0); MCV 91 fL (80-95); MPV 8.7 fL (8.0-11.0); Monocytes % 9.1; Neutrophils % 51.7; Platelet Count 291 10^3/uL (130-400); RBC 4.51 10^6/uL (4.36-5.78); RDW 13.2 % (11.8-14.1); RDW-SD 43.8 fL
[2023-05-29 23:24] LABS: ETHANOL BLOOD 81.3 mg/dL (<10)
[2023-05-29 23:30] LABS: BUN 12 mg/dL (7-18); CREATININE 0.8 mg/dL (0.70-1.30); Calcium 9.2 mg/dL (8.5-10.1); Chloride 104 mmol/L (98-107); Estimated GFR 97.61 (mL/min/1.73m2); Glucose 119 mg/dL (74-106); Potassium 3.1 mmol/L (3.5-5.1); Sodium 138 mmol/L (136-145); Troponin I < 50 ng/L (<or=60)
[2023-05-29 23:40] LABS: COVID-19 PCR Negative (Negative); Influenza A PCR Negative (Negative); Influenza B PCR Negative (Negative); RSV PCR Negative (Negative)
[2023-05-29 23:46] LABS: Source Nasopharynx
--- NOTE | 2023-05-29 23:47 | DI.VRAD_ITS ---
PROCEDURE INFORMATION: Exam: XR Chest Exam date and time: 05/29/2023 11:03 PM Age: 67 years old Clinical indication: Cough and shortness of breath TECHNIQUE: Imaging protocol: Radiologic exam of the chest. Views: 1 view. COMPARISON: CR XR PORTABLE CHEST AP 01/12/2022 3:46 PM FINDINGS: Tubes, catheters and devices: Monitoring wires noted. Lungs: The lungs are hyperaerated. Interstitial markings are prominent in the lung bases. No consolidation. No vascular congestion. Pleural spaces: Unremarkable. No pleural effusion. No pneumothorax. Heart/Mediastinum: Unremarkable. No cardiomegaly. Bones/joints: Arthropathy and rotator cuff tear noted in the right shoulder. IMPRESSION: Chronic lung disease. No acute cardiopulmonary abnormality. Dictated and Authenticated by: Navin Kenney MD. Ordering:TEDDY Barrera MD
[2023-05-30] VITALS (7 sets, daily range): BP systolic 97–113; BP diastolic 53–64; PULSE 74–92; RESP 13–25; TEMP 36.6; O2SAT 97–99
--- NOTE | 2023-05-30 00:18 | W.EDPROG ---
Date of service: 05/30/23 Time of Service: 00:19 Medical Decision Making Patient was seen by my colleague Dr. Wheeler. Please refer to his HPI, physical exam, assessment and plan. At time of signout we are waiting for laboratory work-up, x-ray results. X-ray shows no evidence of acute process per virtual radiology. Vital signs of been notably stable. No evidence of hypoxemia tachypnea or respiratory distress. Laboratory work-up demonstrates normal CBC, VBG demonstrates no evidence of acidosis or COPD exacerbation. Electrolytes stable aside for slightly low potassium at 3.1. Troponin normal. Renal function good. Alcohol is elevated despite the patient stating that he is not drunk for a month. Patient demonstrates a negative COVID flu and RSV. Patient otherwise stable. He feels well and feels comfortable going home. Patient will be discharged. No evidence of acute life-threatening etiology at this time. Symptoms inconsistent with ACS or PE. I have extensively reviewed the treatment plan and discharge instructions with the patient. I have addressed all patient concerns at this time. The patient was made aware of what symptoms to monitor for that would warrant a return to the emergency department. Discussed the plan with the patient, they demonstrate verbal understanding and agreement with our assessment and plan at this time. The documentation in this chart was dictated using [employer] dictation software. Please excuse any dictation errors. FINDINGS: Tubes, catheters and devices: Monitoring wires noted. Lungs: The lungs are hyperaerated. Interstitial markings are prominent in the lung bases. No consolidation. No vascular congestion. Pleural spaces: Unremarkable. No pleural effusion. No pneumothorax. Heart/Mediastinum: Unremarkable. No cardiomegaly. Bones/joints: Arthropathy and rotator cuff tear noted in the right shoulder. IMPRESSION: Chronic lung disease. No acute cardiopulmonary abnormality. Thank you for allowing us to participate in the care of your patient. Dictated and Authenticated by: Navin Kenney MD 05/29/2023 11:47 PM Eastern Time ([place] & [place]) Sign Out Sign Out Data: Sign Out Comment: Please follow-up labs, CXR interpretation, 2 sets of troponins and reassess patient. Last updated by Bruce Wheeler MD at 05/29/23 23:29 Discharge Plan Disposition Patient Disposition: Home Condition: Good Discharge Details Chief Complaint: GenMedical Clinical Impression: Breath shortness Primary Care Provider: Marylu Lyman ED Provider: Bruce Wheeler Home Meds and New Rx's Prescriptions: No Action acetaminophen 325 mg tablet See Rx Instructions PO Q 6HR PRN (Reason: fever or pain) Qty: 100 4RF Rx Instructions: 1-2 tabs PO Q 6HR PRN; albuterol sulfate 90 mcg/actuation HFA aerosol inhaler 2 puff inhalation Q4H PRN lidocaine [Salonpas (lidocaine)] 4 % adhesive patch,medicated 1 patch topical DAILY PRN Rx Instructions: apply to right shoulder daily as needed guaifenesin [Tussin] 100 mg/5 mL liquid 200 mg PO Q4H PRN (Reason: cough) Qty: 473 2RF multivitamin [Multiple Vitamins] 1 TAB tablet 1 tab PO DAILY Qty: 30 0RF Discharge Instructions Instructions: Dyspnea (ED) Additional Instructions: At this time your x-ray shows no evidence of pneumonia. Your lungs are clear and your oxygen levels are excellent. Your heart work-up shows no signs of heart attack. If you notice any worsening of your symptoms, or any new symptoms such as vomiting, diarrhea, fever, chills, shortness of breath, chest pain, numbness, weakness, or fainting , please return immediately to the emergency department for reevaluation. Please follow up with your primary care provider as soon as possible for reassessment and reevaluation. As always, it was a pleasure participating in your medical care today. Referrals: Marylu Lyman MD, [place] [Primary Care Provider] -
== END 2023-05-30 01:15 | disposition home or self-care (01) ==
PROVIDERS: Emergency Provider Emergency Medicine; PCP Family Medicine
DX: R06.02 Shortness of breath (principal); J44.9 Chronic obstructive pulmonary disease, unspecified; E51.2 Wernicke's encephalopathy; Z79.899 Other long term (current) drug therapy; F17.210 Nicotine dependence, cigarettes, uncomplicated; Z66 Do not resuscitate
CPT/HCPCS: 36415; 80048; 82805; 87637; 93005; 99284; 71045; 80320; 84484; 85025; 93010

== ENCOUNTER → 2023-09-11 01:50 | Outpatient (CLI) | payer MEDICARE, MEDICAID, SELFPAY ==
--- NOTE | 2023-09-11 07:12 | DI.US_ITS ---
Exam(s) US AAA SCREENING EXAM: US AAA SCREENING CLINICAL HISTORY: screening for aaa,smoker,encounter for vascular disorder,z13.6 COMPARISON: CT CHEST ABD PELVIS WITH CONTRAST from 08/01/[address] CHEST PE CTA from 01/12/2022 FINDINGS: Abdominal Aorta: Proximal: 1.6 x 1.5 cm Mid: 1.8 x 2.2 cm Distal: 1.3 x 1.6 cm Iliac's: Right: 0.7 x 1 cm Left: 0.8 x 1.2 cm Atherosclerosis is present. There is no evidence of an abdominal aortic aneurysm. IMPRESSION: No evidence of abdominal aortic aneurysm. DATA REPOSITORY:
--- NOTE | 2023-09-11 11:35 | DI.CTLCSR_ITS ---
Exam(s) CT CHEST LUNG CANCER SCREEN EXAM: CT CHEST LUNG CANCER SCREEN CLINICAL HISTORY: Screening for lung cancer,current smoker, F17.210 TECHNIQUE: Imaging Protocol: Axial computed tomography images with coronal and sagittal reformatted images were created and reviewed COMPARISON: CT CT CHEST PE CTA from 01/12/2022 CR,XR XR PORTABLE CHEST AP from 05/29/2023 FINDINGS: The examination is limited due to patient motion artifact. Tracheobronchial tree: Patent where visualized. Pulmonary parenchyma: Paraseptal and centrilobular emphysematous changes are present. No focal conso lidating infiltrates. Lung Nodules: None. Mediastinum and Nela: No dominant adenopathy or fluid collection. The esophagus is unremarkable. Thyroid gland: Unremarkable. Lymph nodes: Unremarkable. Pleura: No effusion or pneumothorax. Heart: The heart is not dilated. Coronary artery calcifications are present. No pericardial effusion . Aorta: Thoracic aorta non-dilated.Atherosclerosis is present. Upper abdomen: Unremarkable. Soft Tissues: Unremarkable. Bones: Within normal limits for the patient's age. IMPRESSION: No pulmonary nodules. Lung RADS Cat 1 - Negative: No nodules and definitely benign nodules Lung-RADS 1.0 CATEGORIES: Category 0 - Prior chest CT exam(s) being located for comparison. Category 1 - Annual screening in 12 months. No nodules or definitely benign nodules. Category 2 - Annual screening in 12 months. Benign appearance. Nodules with low likelihood of becomin g active cancer. Category 3 - 6-month follow-up. Probably benign. Short-term follow-up suggested. Nodules with low lik elihood of becoming active cancer. Category 4A - 3-month follow-up and CT/PET if >8 mm in size. Suspicious finding. Findings which requi re additional testing. Category 4B - Findings which require additional testing and tissue sampling. Suspicious finding. Category 4X - Category 3 or 4 nodules with additional features or imaging findings that increases the suspicion of malignancy. Modifier S- Potentially clinically significant finding. (Non lung cancer) RADIATION DOSE DELIVERED: 80.07mGy.cm Total DLP 80.07mGy.cmTotal DLP DATA REPOSITORY: All CT scans at this facility are submitted to the National Radiology Data Registry (NRDR) Dose Index Registry (DIR) with the [employer] (ACR). RADIATION OPTIMIZATION: All CT scans at this facility use at least one of these dose optimization te chniques: automated exposure control; mA and/or kV adjustment per patient size (includes targeted exa ms where dose is matched to clinical indication); or iterative reconstruction.
== END ==
PROVIDERS: PCP Family Medicine; Visit Provider Family Medicine
DX: Z12.2 Encounter for screening for malignant neoplasm of respiratory organs (principal); F17.210 Nicotine dependence, cigarettes, uncomplicated; J43.2 Centrilobular emphysema; Z13.6 Encounter for screening for cardiovascular disorders
CPT/HCPCS: 71271; 76706

== ENCOUNTER 2023-11-16 18:08 | Emergency (ER) | payer MEDICARE, MEDICAID, SELFPAY ==
[2023-11-16 18:09] VITALS: BP 123/58; PULSE 85; RESP 22; TEMP 36.5; O2SAT 97
--- NOTE | 2023-11-16 18:15 | DI.RAD_ITS ---
Exam(s) XR CHEST 2V PA LATERAL EXAM: XR CHEST 2V PA LATERAL CLINICAL HISTORY: productive cough hx copd. TECHNIQUE: 2D digital imaging was performed. COMPARISON: CT CT CHEST PE CTA from 01/12/2022 CR,XR XR PORTABLE CHEST AP from 05/29/[address] CHEST LUNG CANCER SCREEN from 09/11/2023 FINDINGS: 2 views: Heart size is normal. The mediastinum is not widened. Some hyperinflation is again noted. No infiltrates nor pleural effusions. No pulmonary edema. There is a wedge compression fracture of L1 noted, not have acute appearance. IMPRESSION: No acute pulmonary findings. Old L1 compression fracture. DATA REPOSITORY: RADIATION DOSE DELIVERED:
--- NOTE | 2023-11-16 18:24 | ED.GENADUL_ITS ---
Discharge Plan Disposition Patient Disposition: Home Condition: Improving Discharge Details Chief Complaint: RespSymp Clinical Impression: COPD exacerbation Primary Care Provider: Marylu Lyman ED Provider: Lars Devries Home Meds and New Rx's Prescriptions: No Action PreserVision AREDS 4,296 mcg-226 mg-90 mg capsule 1 cap PO BID Hold Instructions: Not taking at this time acetaminophen 325 mg tablet See Rx Instructions PO Q 6HR PRN (Reason: fever or pain) Qty: 100 4RF Rx Instructions: 1-2 tabs PO Q 6HR PRN; albuterol sulfate 90 mcg/actuation HFA aerosol inhaler 2 puff inhalation Q4H PRN multivitamin [Multiple Vitamins] 1 TAB tablet 1 tab PO DAILY Qty: 30 0RF Hold Instructions: not taking at this time Discharge Instructions Instructions: COPD (Chronic Obstructive Pulmonary Disease) (ED) HPI General Date/Time Provider Initiated Documentation: 11/16/23 18:14 . HPI Narrative: 68-year-old male history of COPD presents with cough productive of dark sputum. Related Data Home Medications Medication Instructions Recorded Confirmed multivitamin (Multiple Vitamins 1 tab PO DAILY #30 tabs 17 11/16/23 tablet) acetaminophen 325 mg tablet See Rx Instructions PO Q 6HR PRN 11/02/21 11/16/23 fever or pain #100 tab-caps albuterol sulfate 90 mcg/actuation 2 puff inhalation Q4H PRN 03/04/23 11/16/23 aerosol inhaler vitamins A,C,X-yldb-obrxfj 4,296 1 cap PO BID 08/22/23 11/16/23 mcg-226 mg-90 mg capsule (PreserVision AREDS) Previous Rx's Medication Instructions Recorded multivitamin (Multiple Vitamins 1 tab PO DAILY #30 tabs 12/05/16 tablet) acetaminophen 325 mg tablet See Rx Instructions PO Q 6HR PRN 11/02/21 fever or pain #100 tab-caps Allergies Allergy/AdvReac Type Severity Reaction Status Date / Time No Known Allergies Allergy Unverified 11/16/23 18:13 General Stated Complaint: RespSymp NAVNEET: 3 Review of Systems Narrative: Review of Systems Constitutional: negative Eyes: negative ENT: negative Cardiovascular: negative Respiratory: Cough Gastrointestinal: negative : negative Musculoskeletal: negative Skin: negative Neurologic: negative Psych: negative Exam Narrative Exam Narrative: Physical Examination General: alert, awake, cooperative, resting comfortably, no acute distress HEENT: normocephalic, atraumatic; PERRL, EOM intact, conjunctiva normal; no nasal discharge; moist mucous membranes, oral and pharyngeal mucosa normal, tolerating secretions Neck: supple, trachea midline; full ROM Chest: normal to inspection Respiratory: normal respiratory effort, speaking in full sentences, clear to auscultation, no wheezing, rales or rhonchi Cardiac: regular rate, regular rhythm, S1S2 intact, no murmurs rubs or gallops GI: abdomen soft, non-tender, non-distended; no palpable mass or hepatosplenomegaly Skin: no lesions, rashes or trauma appreciated Neuro: AAOx3, normal speech, moving all extremities Psych: Appropriate mood and affect Course Vital Signs Vital signs: Vital Signs Temperature 36.5 C 11/16/23 18:09 Pulse 85 11/16/23 18:09 Respiratory Rate 22 11/16/23 18:09 Blood Pressure 123/58 L 11/16/23 18:09 Pulse Oximetry 97 11/16/23 18:09 Temperature 36.5 C 11/16/23 18:09 Temperature Source Skin 11/16/23 18:09 Pulse 85 11/16/23 18:09 Respiratory Rate 22 11/16/23 18:09 Respiratory Effort Normal 11/16/23 18:13 Blood Pressure 123/58 L 11/16/23 18:09 Blood Pressure Position Sitting 11/16/23 18:09 Pulse Oximetry 97 11/16/23 18:09 Oxygen Delivery Method Room Air 11/16/23 18:09 Oxygen Flow Rate 0 11/16/23 18:09 Medical Decision Making 68-year-old male history of COPD presents with productive cough, hemodynamically stable afebrile nontoxic nonhypoxic, speaking in full sentences. Consider COPD exacerbation viral in nature versus early bacterial pneumonia. Low suspicion for ACS PE or aortic pathology. Screening chest x-ray trial dexamethasone and nebulized albuterol/ipratropium. 19: 22 patient resting comfortably no acute distress. Feeling much better after nebs and steroid. Home care instructions and return precautions given. Patient has albuterol inhaler at home Quality:SDOH Health Related Social Needs: No Data to Display PFSH All Active Problems (Updated 11/16/23 @ 19:23 by Lars Devries MD) COPD exacerbation (Acute) Smoker (Acute) Screening for AAA (abdominal aortic aneurysm) (Acute) Wernicke encephalopathy (Acute 07/15/17) Right shoulder pain (Acute) Wernicke encephalopathy (Acute) Folate deficiency (Acute) COPD (chronic obstructive pulmonary disease) (Acute) Second degree atrioventricular block (Acute) Medical History (Updated 11/16/23 @ 19:23 by Lars Devries MD) SVT (supraventricular tachycardia) Hypomagnesemia Hypokalemia Weight loss Alcohol dependence with withdrawal delirium Social History Smoking/Tobacco Use Status: Current every day Smoking risk assessment performed?: Yes Alcohol Intake: former Drug use: Never Substance use type: does not use
[2023-11-16] MEDS: Dexamethasone 10 MG/ML VIAL IVP (18:33)
[2023-11-16] MEDS: Albuterol/Ipratropium 3 ML UPD VIAL UPD (18:33)
--- NOTE | 2023-11-16 19:07 | DI.VRAD_ITS ---
PROCEDURE INFORMATION: Exam: XR Chest Exam date and time: 11/16/2023 6:27 PM Age: 68 years old Clinical indication: Other: Productive cough HX copd TECHNIQUE: Imaging protocol: Radiologic exam of the chest. Views: 2 views. COMPARISON: CT CHEST LUNG CANCER SCREEN 09/11/2023 11:31 AM FINDINGS: Lungs: Moderate to severe hyperinflation suggesting underlying emphysema/COPD. No acute infiltrates or consolidation. No edema. Pleural spaces: No pleural effusion. Heart/Mediastinum: Normal heart size. No mediastinal widening. Bones/joints: Degenerative thoracic spine changes. Old anterior wedge compression fracture of L1. IMPRESSION: 1. Hyperinflation suggesting underlying emphysema/COPD. No acute infiltrates. 2. No pleural disease. 3. Degenerative thoracic spine. Old compression fracture at L1. Dictated and Authenticated by: David Archuleta MD. Ordering:OLENA Sousa MD
== END 2023-11-16 19:25 | disposition home or self-care (01) ==
PROVIDERS: Emergency Provider Emergency Medicine; PCP Family Medicine
DX: J44.1 Chronic obstructive pulmonary disease with (acute) exacerbation (principal); R05.1 Acute cough
CPT/HCPCS: 94640; 96374; 99284; 71046; 99283; J1100; J7620

== ENCOUNTER 2024-03-10 08:54 | Outpatient (CLI) | payer MEDICARE, MEDICAID, SELFPAY ==
[2024-03-10 12:20] LABS: HCT 45.8 % (40.0-50.0); HGB 15.3 g/dL (13.5-17.5); MCH 31.7 pg (27.0-33.0); MCHC 33.4 % (32.0-36.0); MCV 95 fL (80-95); MPV 9.5 fL (8.0-11.0); Platelet Count 244 10^3/uL (130-400); RBC 4.82 10^6/uL (4.36-5.78); RDW 13.7 % (11.8-14.1); RDW-SD 48.3 fL; WBC 6.21 10^3/uL (4.4-10.8)
[2024-03-10 12:31] LABS: Hemoglobin A1C 5.7 % (<5.7)
[2024-03-10 12:39] LABS: ALT 29 U/L (16-63); AST 18 U/L (15-37); Albumin 3.5 g/dL (3.4-5.0); Alkaline Phosphatase 107 U/L (46-116); Anion Gap 8.5 mmol/L (3-11); BUN 17 mg/dL (7-18); Bilirubin, Total 0.31 mg/dL (0.2-1.0); CO2 28.5 mmol/L (21.0-32.0); CREATININE 0.9 mg/dL (0.70-1.30); Calcium 9.4 mg/dL (8.5-10.1); Chloride 105 mmol/L (98-107); Estimated GFR 93.61 (mL/min/1.73m2); Glucose 100 mg/dL (74-106); Potassium 3.8 mmol/L (3.5-5.1); Sodium 142 mmol/L (136-145); TSH (W/Ref FT4) 1.63 uIU/mL (0.36-3.74); Total Protein 7.5 g/dL (6.4-8.2)
[2024-03-10 23:34] LABS: PSA, Diagnostic 0.7 ng/mL (<=4.5)
== END 2024-03-10 08:55 | disposition home or self-care (01) ==
LOC: LOS 08:55
PROVIDERS: PCP Family Medicine; Referring Provider Family Medicine; Visit Provider Family Medicine
DX: N40.0 Benign prostatic hyperplasia without lower urinary tract symptoms (principal); E03.9 Hypothyroidism, unspecified; R63.4 Abnormal weight loss; I10 Essential (primary) hypertension; E11.9 Type 2 diabetes mellitus without complications
CPT/HCPCS: 36415; 80053; 85027; 83036; 84153; 84443

== ENCOUNTER 2024-09-30 02:58 | Outpatient (CLI) | payer MEDICARE, MEDICAID, SELFPAY ==
--- NOTE | 2024-09-30 07:45 | DI.CTLCSR_ITS ---
Exam(s) CT CHEST LUNG CANCER SCREEN EXAM: CT CHEST LUNG CANCER SCREEN CLINICAL HISTORY: Screening for lung cancer,[employer] f17.210. TECHNIQUE: Imaging Protocol: Low Dose Technique CONTRAST MATERIAL: None COMPARISON: CT CT CHEST PE CTA from 01/12/[address] CHEST LUNG CANCER SCREEN from 09/11/2023 FINDINGS: CHEST: LUNGS: There is subpleural scarring in the right upper lobe again noted. There is increase in predom inately peripheral interstitial disease when compared to 1 year ago. There are paraseptal and centri lobular emphysematous changes again noted. There is peribronchial thickening throughout both lung shetty involving all lobes. There are no conf luent infiltrates and there are no pleural effusions evident. No significant focal findings in the t rachea and mainstem bronchi. MEDIASTINUM: There is no obvious hilar adenopathy the, realized limitations of a noninfused study. T here is some subcarinal adenopathy evident. No axillary adenopathy. No supraclavicular adenopathy.. CARDIAC: Heart size is normal. There is no pericardial effusion.Caliber of the thoracic aorta is wit hin normal limits. OTHER: Prominent pancreatic calcification noted at the junction of the pancreatic body and tail. Thi s measures 1.8 cm wide by 0.8 cm AP. OSSEOUS: Mild compression fracture superior endplate of T1 again noted. There is also a nonacute leonel earing compression fracture of superior endplate of L1 again noted with approximately 25 percent heig ht loss.. IMPRESSION: 1. Findings as above but no ominous pulmonary nodules. 2. Incidental pancreatic and osseous findings as above. 3. Lung RADS Cat 1 - Negative: No nodules and definitely benign nodules Lung-RADS 1.0 CATEGORIES: Category 0 - Prior chest CT exam(s) being located for comparison. Category 1 - Annual screening in 12 months. No nodules or definitely benign nodules. Category 2 - Annual screening in 12 months. Benign appearance. Nodules with low likelihood of becomin g active cancer. Category 3 - 6-month follow-up. Probably benign. Short-term follow-up suggested. Nodules with low lik elihood of becoming active cancer. Category 4A - 3-month follow-up and CT/PET if >8 mm in size. Suspicious finding. Findings which requi re additional testing. Category 4B - Findings which require additional testing and tissue sampling. Category 4X - Category 3 or 4 nodules with additional features or imaging findings that increases the suspicion of malignancy. Modifier S- Potentially clinically significant findings (non lung cancer) RADIATION DOSE DELIVERED: 24.73mGy.cm Total DLP DATA REPOSITORY: All CT scans at this facility are submitted to the National Radiology Data Registry (NRDR) Dose Index Registry (DIR) with the [employer] ([employer]). RADIATION OPTIMIZATION: All CT scans at this facility use at least one of these dose optimization te chniques: automated exposure control; mA and/or kV adjustment per patient size (includes targeted exa ms where dose is matched to clinical indication); or iterative reconstruction.
== END 2024-09-30 03:18 ==
PROVIDERS: PCP Family Medicine; Visit Provider Family Medicine
DX: F17.210 Nicotine dependence, cigarettes, uncomplicated (principal); Z12.2 Encounter for screening for malignant neoplasm of respiratory organs
CPT/HCPCS: 71271

== ENCOUNTER 2024-10-22 00:47 | Outpatient (CLI) | payer MEDICARE, MEDICAID, SELFPAY ==
--- NOTE | 2024-10-22 06:30 | DI.CT_ITS ---
Exam(s) CT ABDOMEN PELVIS W EXAM: CT ABDOMEN PELVIS W CLINICAL HISTORY: pancreatic calcifications on CT Chest,k86.89 TECHNIQUE: Imaging Protocol: Axial computed tomography images with coronal and sagittal reformatted images were created and reviewed. CONTRAST MATERIAL: Intravenous: Omnipaque 350 Contrast volume:75 mL Oral: Yes COMPARISON: CT CHEST ABD PELVIS WITH CONTRAST from 08/01/[address] CHEST PE CTA from 01/12/[address] CHEST LUNG CANCER SCREEN from 09/11/[address] CHEST LUNG CANCER SCREEN from 09/30/2024 FINDINGS: The examination is limited due to patient motion artifact. ABDOMEN: Lung Bases: There is mild fibrosis seen in the lung bases. Liver: Normal density. No measurable mass. Portal, Superior Mesenteric, and Splenic Veins: Unremarkable. Gallbladder and Biliary Tract: No radiodense calculus or dilation. Pancreas: There is a dense calcification she seen at the junction of the body and tail of the pancrea s. There is atrophy of the pancreas distal to the calcification. There is prominence of the duct dist ally. The body and head of the pancreas are unremarkable. No peripancreatic fluid collection is seen. Spleen: Normal. Adrenals: There is unchanged thickening of the limbs of the left adrenal gland. The right adrenal gla nd is unremarkable. Kidneys: Normal size, contour and axis. No radiodense stones or obstructive uropathy. No masses seen. Abdominal Aorta: Abdominal portion non-dilated. Atherosclerotic calcification is present. Bowel: No obstruction or bowel wall thickening. Appendix is unremarkable. There is diverticulosis see n in the colon but no evidence of acute diverticulitis. Peritoneal Cavity: No ascites, collection or mesenteric inflammatory response. No free air. Lymph Nodes: Within normal limits. Bones: Within normal limits for the patient's age. There is an old L1 compression deformity. Soft Tissues: Unremarkable. PELVIS: Bladder: There is thickening of the wall of the urinary bladder. This may be due to underdistention. Reproductive Organs: Unremarkable as visualized. Lymph Nodes: Within normal limits. Bones: Within normal limits for the patient's age. IMPRESSION: 1. Dense calcification is seen at the junction of the body and tail of the pancreas with atrophy of t he distal pancreas. This may represent of the obstructing intra luminal calcification. MR HANKINS is recom mended for further evaluation. 2. No acute abdominal or pelvic process. 3. Mild thickening of the wall of the urinary bladder. This may be due to underdistention. Cystitis c annot be entirely excluded. Please correlate clinically. RADIATION DOSE DELIVERED: 230.66mGy.cm Total DLP DATA REPOSITORY: All CT scans at this facility are submitted to the National Radiology Data Registry (NRDR) Dose Index Registry (DIR) with the [employer] ([employer]). RADIATION OPTIMIZATION: All CT scans at this facility use at least one of these dose optimization te chniques: automated exposure control; mA and/or kV adjustment per patient size (includes targeted exa ms where dose is matched to clinical indication); or iterative reconstruction.
[2024-10-22] MEDS: Barium Sulfate 2% W/V-Creamy Vanilla Smoothie 450 ML BTL PO (08:28)
[2024-10-22] MEDS: Barium Sulfate 2% W/V-Berry Smoothie 450 ML BTL PO (08:29)
[2024-10-22 08:53] LABS: CREATININE 0.9 mg/dL (0.70-1.30); Estimated GFR 93.03 (mL/min/1.73m2)
[2024-10-22] MEDS: Normal Saline - Diluent 50 ML VIAL IJ (10:10)
[2024-10-22] MEDS: Omnipaque 350 MG/ML 500 ML BTL-Imaging package 75 ML IJ (10:11)
== END 2024-10-22 01:07 ==
LOC: DI 00:47
PROVIDERS: PCP Family Medicine; Visit Provider Family Medicine
DX: K86.89 Other specified diseases of pancreas (principal); Z01.812 Encounter for preprocedural laboratory examination
CPT/HCPCS: 74177; 82565

== ENCOUNTER 2024-11-20 00:12 | Outpatient (CLI) | payer MEDICARE, MEDICAID, SELFPAY ==
--- NOTE | 2024-11-20 06:00 | DI.MRI_ITS ---
Exam(s) MR ABDOMEN WO EXAM: MR ABDOMEN WO CLINICAL HISTORY: pancreatic calcification on CT Scan,K86.89 TECHNIQUE: Multiplanar multisequence MRI of the Abdomen was performed. MRCP sequences also performed. COMPARISON: CT CHEST ABD PELVIS WITH CONTRAST from 08/01/[address] CHEST PE CTA from 01/12/[address] CHEST LUNG CANCER SCREEN from 09/11/[address] CHEST LUNG CANCER SCREEN from 09/30/[address] ABDOMEN PELVIS W from 10/22/2024 FINDINGS: Liver: Unremarkable. Gallbladder: A few stones are noted in the dependent portion of the gallbladder. No wall thickening. Bile Ducts: Unremarkable. Pancreas: Calcification noted in the tail. Distal pancreatic atrophy. No visible mass or pancreatic ductal dilatation. Adrenals: Mild thickening of the left adrenal gland without focal mass. Kidneys: Unremarkable mild bilateral hydronephrosis. Spleen: Unremarkable. Aorta: Unremarkable. Soft Tissues: Unremarkable. Bone: Unremarkable. Lymph Nodes: Unremarkable. Mesentery: No ascites. No focal fluid collection. Bowel: No abnormal dilatation or wall thickening. Bladder: The urinary bladder has a somewhat irregular contour out and shows a trabeculated wall. Is not fully included on the exam. There was mild bladder wall thickening on the prior CT. IMPRESSION: Large focal pancreatic calcification and distal pancreatic atrophy is consistent with ductal obstruct ion. No evidence of suspicious mass. Thick-walled urinary bladder with trabeculation which could indicate a neurogenic bladder. There is mild bilateral hydronephrosis. Cholelithiasis. DATA REPOSITORY:
== END 2024-11-20 00:32 ==
PROVIDERS: PCP Family Medicine; Visit Provider Family Medicine
DX: K86.89 Other specified diseases of pancreas (principal)
CPT/HCPCS: 74181

== ENCOUNTER 2025-01-11 02:46 | Outpatient (CLI) | payer MEDICARE, MEDICAID, SELFPAY ==
--- NOTE | 2025-01-11 07:45 | DI.DEXA_ITS ---
Exam(s) XR DEXA BONE DENSITY W/WO DIANA EXAM: XR DEXA BONE DENSITY W/WO DIANA CLINICAL HISTORY: pancreatic insufficiency, osteoporosis,m81.0 TECHNIQUE: COMPARISON: No exams were available for comparison FINDINGS: Lateral Spine Image: There is mild anterior wedging of the L1 vertebral body. Left hip: Total T-Score: -2.4 Total Z-Score: -1.8 T- and Z-scores: There is osteopenia present. Note is made of osteoporosis in the left femoral neck with a T-score of -2.9. Lumbar Spine: Total T-Score: 0.1 Total Z-Score: 0.9 T- and Z-scores: Within normal limits. There is osteoporosis seen in the left forearm with a total T-score of -3.5 and a Z-score of -2.4. IMPRESSION: Osteoporosis seen in the left femoral neck and the left forearm.
== END 2025-01-11 03:06 ==
LOC: DI 02:47
PROVIDERS: PCP Family Medicine; Visit Provider Family Medicine
DX: M81.0 Age-related osteoporosis without current pathological fracture (principal); K86.89 Other specified diseases of pancreas
CPT/HCPCS: 77080